=== PATIENT | female | born 1955 | race Caucasian/White ===

== ENCOUNTER → 2017-05-09 | Outpatient (CLI) | payer BC ==
[~2017-05-09] MED LIST: ADRENAL; BENADRYL25 MG PO; BUPROPION XL150 MG PO; CA/MAG/ZINC; CA/MAG/ZINC PO; CLARITIN10 M3 PO; CLEOCIN HCL300 M1 PO; COQ-10200 MG PO; DICLOFENAC SODI50 MG; ELESTRIN144 GM TD; ESTRACE1 M1 PO; ESTRADIAL; FISH OIL 1,0001 CAP PO; FISH OIL 1,2001 EAC1 PO; FISH OIL 1,2001 EAC4 PO; FLEXERIL PO; HYDROCODON-ACE1 EACH PO; IODINE; KCL PO; LAMICTAL ODT50 MG PO; LEVOTHYROXINE25 MC1 PO; MOBIC PO; MULTI-VITAMIN1 EAC1 PO; MULTIVITAMINS W1 TAB PO; NABUMETONE PO; NAPROSYN-EC500 M1 PO; NAPROXEN375 MG PO; OMEGA 3-6-9 11200 M1 PO; OMEPRAZOLE40 MG; POTASSIUM; POTASSIUM GLUC500 GM PO; POTASSIUM GLUCO PO; PROTONIX PO; PROTONIX20 MG PO; RENATABS WITH I1 TAB PO; SAVELLA50 MG PO; SV CALCIUM-MAG1 EACH PO; SYNTHROID PO; ULTRAM PO; VIT C; VIT C PO; VITAL-D RX TABL1 TAB; VITAMIN C500 M1 PO; VITAMIN D1000 UNI1; VITAMIN D2000 UNIT PO; ZANAFLEX2 M2 PO; ZANTAC150 MG PO; ZOLOFT50 MG PO
--- NOTE | ~2017-05-09 | US5 ---
[facility] A Service of [facility] & [facility] / [facility] RADIOLOGY TEXT RESULTS PATIENT: NAHID WILSON LOCATION: [facility] : 57 UNIT #: [id number] AGE: [address]: Peterson Moore MD SEX: F ORDER DR: [id number] [facility] [address] [place], [place] [address] [id number] O MR#: [id number] Acc #: [id number] NAME: NAHID WILSON. : 1955 SEX: F STUDY DATE/TIME: 05/09/2017 8:04 UNIT: [facility] ROOM: STUDY DESCRIPTION: US Abdominal Complete Attending Physician: Peterson Moore M.D. Referring Physician: Peterson Moore M.D. Ordering Physician: Peterson Moore M.D. Primary Care Physician: Stefania Bee M.D. MEDICAL IMAGING REPORT This report is preliminary unless electronic signature is present EXAM Abdominal ultrasound complete 05/09/2017 HISTORY Abdominal pain and nausea intermittently for 2 months. FINDINGS The liver demonstrates an increase in echotexture with attenuation of the ultrasound beam characteristic of fatty infiltration. There is a 2.8 cm cyst in the left hepatic lobe. No solid mass lesions are identified. The intra and extrahepatic bile ducts are not dilated. The gallbladder is normal with no evidence of cholelithiasis, wall thickening or pericholecystic fluid. The common duct measures 4 mm. The pancreas and spleen are normal. The spleen measures 8 cm in greatest diameter. The visualized portions of the abdominal aorta and inferior vena cava are within normal limits. The kidneys are normal bilaterally. IMPRESSION 1. Fatty infiltration of the liver. 2. 2.8 cm cyst left hepatic lobe. 3. Normal gallbladder. Dictated by... Antonio Welch M.D. THIS IS AN ELECTRONICALLY VERIFIED REPORT Antonio Welch M.D. at 05/11/2017 7:44 AM KRT/to TD: 05/09/2017 21:36 JOB #: [id number] MEDICAL IMAGING REPORT [facility] A Service of [facility] & [facility] / [facility] RADIOLOGY TEXT RESULTS PATIENT: NAHID WILSON LOCATION: [facility] #: [id number] : 57 UNIT #: [id number] AGE: [address]: Peterson Moore MD SEX: F ORDER DR: Page 1 of 1 COPY
== END | disposition home or self-care (01) ==
LOC: CGUS 05-02 07:30
DX: R10.9 Unspecified abdominal pain (principal); K76.0 Fatty (change of) liver, not elsewhere classified; K76.89 Other specified diseases of liver
CPT/HCPCS: 76700